=== PATIENT | female | born 1995 | race American Indian/Alaskan Native ===

== ENCOUNTER 2018-01-23 15:09 | Emergency (ER) | payer SELFPAY ==
[2018-01-23 15:16] VITALS: BP 129/89
[2018-01-23 15:59] LABS: Basophils # (Auto) 0.1 K/mm3 (0.0-0.1); Basophils % (Auto) 0.8 % (0.0-1.8); Eosinophils # (Auto) 0.1 K/mm3 (0.0-0.4); Eosinophils % (Auto) 0.7 % (0.0-4.3); Hematocrit 22.9 % (30.3-42.9); Hemoglobin 7.1 gm/dl (10.1-14.3); Lymphocytes # (Auto) 1.5 K/mm3 (1.2-5.4); Mean Corpuscular HGB Conc 31 % (30-34); Monocytes # (Auto) 0.5 K/mm3 (0.0-0.8); Monocytes % (Auto) 7.1 % (0.0-7.3); Platelet Count 396 K/mm3 (140-440); Red Blood Count 4.33 M/mm3 (3.65-5.03)
[2018-01-23 16:02] LABS: Mean Corpuscular Hemoglobin 16 pg (28-32); Mean Corpuscular Volume 53 fl (79-97); Red Cell Distribution Width 21.4 % (13.2-15.2)
[2018-01-23 16:18] LABS: BUN/Creatinine Ratio 12; Blood Urea Nitrogen 6 mg/dL (7-17); Calcium 8.4 mg/dL (8.4-10.2); Hemolysis Index 0
== END 2018-01-23 15:45 | disposition left against medical advice (07) ==
LOC: ED 15:09
DX: Z53.21 Procedure and treatment not carried out due to patient leaving prior to being seen by health care provider (principal)
CPT/HCPCS: 36415; 80048; 85025; 85045

== ENCOUNTER 2018-01-29 22:48 | Inpatient (IN) | payer SELFPAY ==
[2018-01-29] MEDS ORDERED: ASPIRIN PO ONE (23:44)
[2018-01-29] MEDS ORDERED: D5NS 0.2% 1,000 ML IV SCH (23:45)
[2018-01-30 00:24] LABS: Basophils # (Auto) 0.1 K/mm3 (0.0-0.1); Basophils % (Auto) 1.1 % (0.0-1.8); Eosinophils # (Auto) 0.1 K/mm3 (0.0-0.4); Eosinophils % (Auto) 0.6 % (0.0-4.3); Hematocrit 22.1 % (30.3-42.9); Hemoglobin 6.5 gm/dl (10.1-14.3); Lymphocytes % (Auto) 20.5 % (13.4-35.0); Mean Corpuscular HGB Conc 30 % (30-34); Monocytes # (Auto) 0.7 K/mm3 (0.0-0.8); Monocytes % (Auto) 7.3 % (0.0-7.3); Platelet Count 665 K/mm3 (140-440); Red Blood Count 4.23 M/mm3 (3.65-5.03)
[2018-01-30 00:26] LABS: Mean Corpuscular Hemoglobin 16 pg (28-32); Mean Corpuscular Volume 52 fl (79-97); Red Cell Distribution Width 21.8 % (13.2-15.2)
[2018-01-30 00:29] LABS: Alanine Aminotransferase 9 units/L (7-56); Albumin 4.1 g/dL (3.9-5); BUN/Creatinine Ratio 22; Blood Urea Nitrogen 13 mg/dL (7-17); Calcium 8.9 mg/dL (8.4-10.2); Hemolysis Index 0; Lipase 21 units/L (13-60)
[2018-01-30 00:48] LABS: Bilirubin,Urine NEG (Negative); Blood,Urine MOD (Negative); Color,Urine Yellow (Yellow); Mucus,Urine FEW /HPF; Protein,Urine <15 mg/dL mg/dL (Negative)
--- NOTE | 2018-01-30 01:22 | Emergency Department Report ---
ED General Adult HPI - General Chief complaint: Vaginal Bleeding Stated complaint: ABD PAIN, VAG BLEED Time Seen by Provider: 01/30/18 00:24 Source: patient Mode of arrival: Ambulatory Limitations: No Limitations - History of Present Illness Initial comments: pt. says that for 14 days he as been having vaginal bleeding . she is also complaining of pain in the right side of abdomen. says it is moderate intensity with no aggrav. or relieving factor. MD Complaint: vaginal bleeding -: Gradual Location: abdomen (right lower quadrant) Radiation: non-radiation Quality: aching Consistency: constant Improves with: none Worsens with: none Associated Symptoms: chest pain (right side), weakness, other (dizziness) Treatments Prior to Arrival: none - Related Data Home Medications Medication Instructions Recorded Confirmed Last Taken Tablet 1 tab PO DAILY 01/29/18 01/29/18 Unknown Allergies Allergy/AdvReac Type Severity Reaction Status Date / Time No Known Allergies Allergy Verified 01/29/18 23:46 ED Review of Systems ROS: Stated complaint: ABD PAIN, VAG BLEED Other details as noted in HPI Comment: All other systems reviewed and negative ED Past Medical Hx - Past Medical History Hx Sickle Cell Disease: Yes - Surgical History Additional Surgical History: orbital fractuire fracture with surgery to right eye - Social History Smoking Status: Current Some Day Smoker Substance Use Type: Marijuana - Medications Home Medications: Home Medications Medication Instructions Recorded Confirmed Last Taken Type Tablet 1 tab PO DAILY 01/29/18 01/29/18 Unknown History ED Physical Exam - General Limitations: No Limitations General appearance: alert, in no apparent distress - Head Head exam: Present: atraumatic, normocephalic - Eye Eye exam: Present: normal appearance - ENT ENT exam: Present: mucous membranes moist - Neck Neck exam: Present: normal inspection. Absent: tenderness - Respiratory Respiratory exam: Present: normal lung sounds bilaterally. Absent: respiratory distress - Cardiovascular Cardiovascular Exam: Present: regular rate, normal rhythm. Absent: systolic murmur, diastolic murmur, rubs, gallop - GI/Abdominal GI/Abdominal exam: Present: soft, tenderness (ttp of the right lower quadrant.no rebound), normal bowel sounds - Rectal Rectal exam: Present: deferred - Extremities Exam Extremities exam: Present: normal inspection. Absent: full ROM - Back Exam Back exam: Present: normal inspection, full ROM - Neurological Exam Neurological exam: Present: alert, oriented X3 - Psychiatric Psychiatric exam: Present: normal affect, normal mood - Skin Skin exam: Present: warm, dry, intact, normal color. Absent: rash ED Course Vital Signs 01/29/18 01/30/18 01/30/18 23:33 00:54 01:00 Temperature 99.1 F Pulse Rate 100 H 83 86 Respiratory 20 13 16 Rate Blood Pressure 128/53 124/73 117/77 O2 Sat by Pulse 100 100 Oximetry 01/30/18 01/30/18 01/30/18 01:10 01:20 01:30 Temperature Pulse Rate 100 H 82 89 Respiratory 25 H 22 17 Rate Blood Pressure 117/77 123/76 123/76 O2 Sat by Pulse 100 100 100 Oximetry 01/30/18 01/30/18 01/30/18 01:40 01:50 02:00 Temperature Pulse Rate 95 H 92 H 101 H Respiratory 18 13 14 Rate Blood Pressure 126/89 123/76 123/76 O2 Sat by Pulse 100 100 100 Oximetry 01/30/18 01/30/18 01/30/18 02:10 02:20 02:30 Temperature Pulse Rate 92 H 103 H 82 Respiratory 14 16 22 Rate Blood Pressure 123/76 126/89 126/89 O2 Sat by Pulse 100 99 100 Oximetry 01/30/18 01/30/18 01/30/18 02:40 02:50 03:12 Temperature Pulse Rate 86 86 91 H Respiratory 26 H 19 22 Rate Blood Pressure 126/89 126/89 126/89 O2 Sat by Pulse 100 100 Oximetry 01/30/18 01/30/18 01/30/18 03:20 03:30 03:40 Temperature Pulse Rate 73 77 Respiratory 18 17 22 Rate Blood Pressure 126/89 126/89 126/89 O2 Sat by Pulse 93 Oximetry 01/30/18 01/30/18 01/30/18 03:50 04:00 04:09 Temperature 98.6 F Pulse Rate 70 85 Respiratory 25 H 21 Rate Blood Pressure 126/89 126/89 O2 Sat by Pulse 100 100 Oximetry 01/30/18 01/30/18 01/30/18 04:16 04:20 04:30 Temperature Pulse Rate 75 89 Respiratory 12 20 17 Rate Blood Pressure 112/69 115/69 O2 Sat by Pulse 100 10 L 93 Oximetry 01/30/18 04:46 Temperature Pulse Rate 78 Respiratory 25 H Rate Blood Pressure 115/69 O2 Sat by Pulse 100 Oximetry ED Medical Decision Making - Lab Data Result diagrams: 01/29/18 23:52 01/29/18 23:52 - EKG Data -: EKG Interpreted by Me EKG shows normal: sinus rhythm (rate of 84), axis (normal), intervals (normal), QRS complexes (normal), ST-T waves (normal) - Radiology Data Radiology results: report reviewed - Medical Decision Making pt accepted for admission by Dr Doll. I also spoke to Brush Finisher.- Dr Michael and she was okay with the present management and said to admit to Hospitalist Critical care attestation.: If time is entered above; I have spent that time in minutes in the direct care of this critically ill patient, excluding procedure time. ED Disposition Clinical Impression: Dysfunctional uterine bleeding, Anemia Disposition: OP ADMIT IP TO THIS HOSP Is pt being admited?: Yes Does the pt Need Aspirin: No Condition: Stable Referrals: DERECK CARROLL MD [Primary Care Provider] - 3-5 Days
[2018-01-30] MEDS ORDERED: NACL 0.9% 1000 ML 1,000 ML IV ONE (01:25)
[2018-01-30] MEDS ORDERED: PREMARIN IV ONE (02:37)
[2018-01-30] MEDS ORDERED: NACL 0.9% 500 ML 500 ML IV ONE ×3 (02:45→18:00)
--- NOTE | 2018-01-30 03:35 | Cat Scan Report ---
FINAL REPORT EXAM: CT ABDOMEN PELVIS WO CON HISTORY: abdominal pain TECHNIQUE: Routine axial imaging was obtained of the abdomen and pelvis without oral or IV contrast. Sagittal and coronal reconstructions were reviewed. FINDINGS: The lung bases are clear. Pleural fluid is not seen. The liver, gallbladder, biliary tree, pancreas, spleen, and adrenal glands appear normal. The kidneys show no evidence of stones or hydronephrosis. The bowel loops are normal in caliber. The appendix is not enlarged. There is no evidence of free fluid or adenopathy. In the pelvis the uterus and bladder appear normal. The skeletal structures appear well maintained. The soft tissues reveal reticulation of the subcutaneous fat along the right lower anterior pelvic wall above the inguinal area. Localized inflammation cannot be excluded. IMPRESSION: No acute process in the abdomen and pelvis. Localized subcutaneous induration above the right inguinal area along the right lower anterior pelvic wall. Localized cellulitis cannot be excluded.
[2018-01-30] MEDS ORDERED: NORCO 10/325 PO ONE (03:51)
--- NOTE | 2018-01-30 04:21 | XRay Report ---
FINAL REPORT EXAM: XR CHEST 1V AP HISTORY: chest pain TECHNIQUE: An upright view of the chest was submitted. FINDINGS: Heart size and mediastinum appear normal. The lungs are clear. Pleural fluid is not seen. The skeletal structures reveal a dextroscoliosis of the lower thoracic spine. IMPRESSION: No active chest disease.
[2018-01-30] MEDS ORDERED: ZOFRAN IV PRN (04:37)
[2018-01-30] MEDS ORDERED: TYLENOL PO PRN (04:37)
[2018-01-30] MEDS ORDERED: SODIUM CHLORIDE FLUSH SYRINGE 10 ML IV PRN (04:37)
--- NOTE | 2018-01-30 04:55 | History and Physical Report ---
History of Present Illness Date of examination: 01/30/18 History of present illness: 22-year-old when with history of menorrhagia comes emergency room with complaints of vaginal bleeding 13 days. He stated that her cycle usually lasts 7 days, the first half of her cycle is usually heavy however this time she continues to have heavy cycles throughout the 13 days. States the longest that she has bled 4 was 1 month, at that time she received blood transfusion. Also complaining of dizziness, shortness of breath, chest pain on the right side which she described as a sharp pain over the last 4 days, intermittent in nature, less than 1 minute, intensity to 10, no radiation, she cannot identify exacerbation or relieving factors Review of systems Constitutional: no weight loss, chills Ears, eyes, nose, mouth and throat: no nasal congestion, no nasal discharge, no sinus pressure, no vision change, no red eye. Neck: No neck pain or rigidity. Cardiovascular: no chest pain, palpitations Respiratory: No cough, shortness of breath Gastrointestinal: no abdominal pain, hematochezia Genitourinary : no dysuria, frequency , no hematuria Musculoskeletal: no joint swelling or muscle ache Integumentary: no rash, no pruritis Neurological: no parathesias, no numbness, no focal weakness Endocrine: no cold or heat intolerance, no polyuria or polydipsia Hematologic/Lymphatic: no easy bruising, no easy bleeding, no gland swelling Allergic/Immunologic: no urticaria, no angioedema. PAST MEDICAL HISTORY: Menorrhagia PAST SURGICAL HISTORY: None SOCIAL HISTORY: Social alcohol, tobacco, no drugs FAMILY HISTORY: Hypertension Medications and Allergies Allergies Allergy/AdvReac Type Severity Reaction Status Date / Time No Known Allergies Allergy Verified 01/29/18 23:46 Home Medications Medication Instructions Recorded Confirmed Last Taken Type Tablet 1 tab PO DAILY 01/29/18 01/29/18 Unknown History Active Meds: Active Medications Acetaminophen (Tylenol) 650 mg PO Q4H PRN PRN Reason: Pain MILD(1-3)/Fever >100.5/WEST Ondansetron HCl (Zofran) 4 mg IV Q8H PRN PRN Reason: Nausea And Vomiting Oxycodone/Acetaminophen (Percocet 5/325) 1 tab PO Q6H PRN PRN Reason: Pain, Moderate (4-6) Sodium Chloride (Sodium Chloride Flush Syringe 10 Ml) 10 ml IV BID ELIZA Sodium Chloride (Sodium Chloride Flush Syringe 10 Ml) 10 ml IV PRN PRN PRN Reason: LINE FLUSH Exam - Physical Exam Narrative exam: Gen. appearance: Patient lying in bed, no apparent distress HEENT: Normocephalic, atraumatic, pupils equally round and reactive to light, extraocular movement intact, and no sclericterus,. No JVD or thyromegaly or nodule,neck supple, no carotid bruit ,mucous membranes moist, no exudate or erythema Heart: S1, S2, regular rate and rhythm Lungs: Clear to auscultation bilaterally, breathing comfortable Abdomen: Positive bowel sounds, nontender, nondistended, no organomegaly Extremity: No edema, cyanosis, clubbing Skin: No rash, nodules, warm, dry Neuro: Oriented 3, cranial nerves II-12 intact, speech is fluent, motor and sensory intact - Constitutional Vitals: Temp Pulse Resp BP Pulse Ox 98.6 F 85 20 126/89 10 L 01/30/18 04:09 01/30/18 04:00 01/30/18 04:20 01/30/18 04:00 01/30/18 04:20 Results - Labs CBC & Chem 7: 01/29/18 23:52 01/29/18 23:52 Labs: Abnormal lab results 01/29/18 01/29/18 01/30/18 Range/Units 23:52 23:52 02:01 Hgb 6.5 L (10.1-14.3) gm/dl Hct 22.1 L (30.3-42.9) % MCV 52 L (79-97) fl MCH 16 L (28-32) pg RDW 21.8 H (13.2-15.2) % Plt Count 665 H (140-440) K/mm3 Seg Neutrophils % 70.5 H (40.0-70.0) % Creatinine 0.6 L (0.7-1.2) mg/dL Crossmatch See Detail - Imaging and Cardiology EKG: image reviewed Chest x-ray: image reviewed CT scan - abdomen: report reviewed Assessment and Plan Assessment Menorrhagia Blood loss anemia Plan Admit to medicine Transfuse packed red blood cells, consult CENSUS CLERK DVT prophylaxis
[2018-01-30 05:31] LABS: Creatine Kinase MB < 1.0 ng/mL (0.0-4.0)
[2018-01-30] MEDS: SODIUM CHLORIDE FLUSH SYRINGE 10 ML IV SCH ×2 (10:00→22:00)
--- NOTE | 2018-01-30 10:30 | History and Physical Report ---
History of Present Illness Date of examination: 01/30/18 Date of admission: 01/30/18 04:37 Chief complaint: heavy vaginal bleeding History of present illness: 22 yo G 0 P 0 came in last night for heavy vaginal bleeding. Patient states that she is from [place]. She has history of menorrhagia coming emergency room with complaints of vaginal bleeding 13 days. She stated that her cycle usually lasts 7 days, the first half of her cycle is usually heavy. This bleed is different stating that it continues to have heavy cycles throughout the 13 days. States the longest bleeding was endured for one month . She has a hx of blood tansfusion in the past. Past History Past Medical History: other (menorrhagia ) Past Surgical History: no surgical history Family/Genetic History: hypertension Social history: no significant social history, single. denies: smoking, alcohol abuse, prescription drug abuse Medications and Allergies Allergies Allergy/AdvReac Type Severity Reaction Status Date / Time No Known Allergies Allergy Verified 01/29/18 23:46 Home Medications Medication Instructions Recorded Confirmed Last Taken Type Tablet 1 tab PO DAILY 01/29/18 01/29/18 Unknown History Active Meds: Active Medications Acetaminophen (Tylenol) 650 mg PO Q4H PRN PRN Reason: Pain MILD(1-3)/Fever >100.5/WEST Ondansetron HCl (Zofran) 4 mg IV Q8H PRN PRN Reason: Nausea And Vomiting Oxycodone/Acetaminophen (Percocet 5/325) 1 tab PO Q6H PRN PRN Reason: Pain, Moderate (4-6) Sodium Chloride (Sodium Chloride Flush Syringe 10 Ml) 10 ml IV BID ELIZA Sodium Chloride (Sodium Chloride Flush Syringe 10 Ml) 10 ml IV PRN PRN PRN Reason: LINE FLUSH Review of Systems All systems: negative Genitourinary: vaginal bleeding - Vital Signs Vital signs: Vital Signs Temp Pulse Resp BP Pulse Ox 99.1 F 100 H 20 128/53 100 01/29/18 23:33 01/29/18 23:33 01/29/18 23:33 01/29/18 23:33 01/29/18 23:33 Temp Pulse Resp BP Pulse Ox 98.6 F 76 14 110/61 99 01/30/18 04:09 01/30/18 06:00 01/30/18 06:00 01/30/18 06:00 01/30/18 06:00 - Physical Exam Breasts: Positive: deferred Cardiovascular: Regular rate, Normal S1 Lungs: Positive: Clear to auscultation, Normal air movement Abdomen: Positive: normal appearance, soft, normal bowel sounds. Negative: distention, tenderness, guarding Genitourinary (Female): Positive: normal external genitalia, normal perenium Vulva: both: normal Uterus: Positive: normal size, normal contour Deep Tendon Reflex Grade: Normal +2 Results Result Diagrams: 01/30/18 10:20 01/29/18 23:52 Abnormal lab results 01/29/18 01/29/18 01/30/18 Range/Units 23:52 23:52 02:01 Hgb 6.5 L (10.1-14.3) gm/dl Hct 22.1 L (30.3-42.9) % MCV 52 L (79-97) fl MCH 16 L (28-32) pg RDW 21.8 H (13.2-15.2) % Plt Count 665 H (140-440) K/mm3 Seg Neutrophils % 70.5 H (40.0-70.0) % Creatinine 0.6 L (0.7-1.2) mg/dL Crossmatch See Detail All other labs normal. CT scan - abdomen: report reviewed Assessment and Plan A/p HD#1 Menorrhagia, severe anemia s/p IV estrogen 25mg ( may use for 24 hrs every 4-6hrs) recommned patient to transition to ocps vs depo -but patietn adamently refuses She states that she will take estrogen but will not take any other meds agree with blood transfusion recommneded US pelvic to assess clearly CT scan not as specific for therapist occupational issues f/u in office 1-2 weeks after discharge to discuss other options ie depo vs mirena IUD- patient states she is not interested in any tyepe of control thank you for the consult
[2018-01-30 10:33] LABS: Hemoglobin 6.9 gm/dl (10.1-14.3)
[2018-01-30 11:00] LABS: Creatine Kinase MB < 1.0 ng/mL (0.0-4.0)
[2018-01-30] MEDS ORDERED: NACL 0.9% 250ML 250 ML ONE (12:12)
[2018-01-30] MEDS: PERCOCET 5/325 PO PRN ×2 (13:41→19:48)
--- NOTE | 2018-01-30 17:54 | Event Note ---
Date: 01/30/18 Patient was seen in rounds this morning, patient was admitted this morning. Patient is admitted for symptomatic anemia secondary to menometrorrhagia. Posttransfusion hemoglobin 6.9 , to transfuse 2 more units of blood. CARAMEL CUTTER HELPER consult appreciated. Continue management per H&P.
[2018-01-31] MEDS: PERCOCET 5/325 PO PRN (08:37)
[2018-01-31 08:54] LABS: Hematocrit 34.7 % (30.3-42.9); Hemoglobin 11.3 gm/dl (10.1-14.3); Mean Corpuscular HGB Conc 33 % (30-34); Platelet Count 510 K/mm3 (140-440); Red Blood Count 5.38 M/mm3 (3.65-5.03)
[2018-01-31 08:55] LABS: Mean Corpuscular Hemoglobin 21 pg (28-32); Mean Corpuscular Volume 64 fl (79-97); Red Cell Distribution Width 36.2 % (13.2-15.2)
[2018-01-31 08:56] LABS: Basophils # (Auto) 0.1 K/mm3 (0.0-0.1); Basophils % (Auto) 0.9 % (0.0-1.8); Eosinophils # (Auto) 0.1 K/mm3 (0.0-0.4); Eosinophils % (Auto) 0.7 % (0.0-4.3); Lymphocytes # (Auto) 1.5 K/mm3 (1.2-5.4); Lymphocytes % (Auto) 13.9 % (13.4-35.0); Monocytes # (Auto) 0.8 K/mm3 (0.0-0.8)
[2018-01-31] MEDS: SODIUM CHLORIDE FLUSH SYRINGE 10 ML IV SCH (09:21)
[2018-01-31 09:25] LABS: BUN/Creatinine Ratio 14; Blood Urea Nitrogen 7 mg/dL (7-17); Calcium 9.1 mg/dL (8.4-10.2); Hemolysis Index 15
--- NOTE | 2018-01-31 12:25 | Discharge Summary ---
Providers - Providers Date of Admission: 01/30/18 04:37 Date of discharge: 01/31/18 Attending physician: ZBIGNIEW MILLIGAN MD 01/30/18 04:37 Consult to Physician [CONS] Urgent Comment: Consulting Provider: CHRISTIAN MICHAEL Physician Instructions: Reason For Exam: vag bleed Primary care physician: DERECK CARROLL Hospitalization Reason for admission: symptomatic anemia Condition: Stable Hospital course: 21-year-old -[place] female who is post medical history significant for anemia, DUB presented to the emergency department complaining of prolonged vaginal bleeding for over a week. Patient is feeling dizzy. Her hemoglobin was around 6 in the emergency department she was transfused with 2 units of blood and her hemoglobin this morning was 11.2 and patient was symptom-free. Patient claims that she had unprotected sex was a person was herpes simplex and she wants to be treated. We did HSV and results are pending. We will also ordered STI tests and results are pending. Then patient didn't have any lesion which looks like herpes simplex and I told her if she has any signs and symptoms of herpes simplex we will treat her. If there are no symptoms we can wait the result of HSV. Patient is complaining a bump on the left groin area and I went with nurse Amy and examined her and the bump is one and non tender. For me it doesn't look like HSV infection and advised her to have hot compression. INSTALLMENT DEALER recommended and was not ordered the plan was to call contact center analyst and ask the plan about Pelvic U/S. The patient get upset and wants to be discharged. Her hemoglobin is 11 and she is stable for discharge. I have extensively discussed about the need to have follow up with the results either with PCP or Dr Michael but she is dismissive. Disposition: TO HOME OR SELFCARE Time spent for discharge: 31 minutes - Discharge Diagnoses (1) Anemia Status: Acute Qualifiers: Anemia type: iron deficiency Iron deficiency anemia type: chronic blood loss Qualified Code(s): D50.0 - Iron deficiency anemia secondary to blood loss (chronic) (2) Dysfunctional uterine bleeding Status: Chronic Core Measure Documentation - Palliative Care Palliative Care/ Comfort Measures: Not Applicable - Core Measures Any of the following diagnoses?: none Exam - Physical Exam Narrative exam: Not in cardiopulmonary distress. The patient appeared well nourished and normally developed. Vital signs as documented. Head exam is unremarkable. No scleral icterus . Neck is without jugular venous distension, thyromegaly, or carotid bruits. Lungs are clear to auscultation. Cardiac exam reveals regular rate and Rhythm. First and second heart sounds normal. No murmurs, rubs or gallops. Abdominal exam reveals normal bowel sounds, no masses, no organomegaly and no aortic enlargement. Extremities are nonedematous and both femoral and pedal pulses are normal. Small bump on the right area, i don't believe it is Herpes simplex. REVIEW MANAGER: Alert and oriented 3. No focal weakness. - Constitutional Vitals: Temp Pulse Resp BP Pulse Ox 98.8 F 78 14 126/83 100 01/31/18 08:52 01/31/18 08:52 01/31/18 08:52 01/31/18 08:52 01/31/18 08:52 Plan Activity: no restrictions Weight Bearing Status: Full Weight Bearing Follow up with: DERECK CARROLL MD [Primary Care Provider] - 7 Days CHRISTIAN MICHAEL MD [Staff Physician] - 7 Days Prescriptions: Ferrous Sulfate 324 mg PO BID #60 tablet.
[2018-01-31 12:56] VITALS: BP 128/75
== END 2018-01-31 13:36 | disposition home or self-care (01) | DRG 761 ==
LOC: ED 22:48 → 4A 01-30 04:37
PROVIDERS: ADMIT Internal Medicine; ATTEND Internal Medicine
PROC: 30233N1 Transfusion of Nonautologous Red Blood Cells into Peripheral Vein, Percutaneous Approach (ICD-10-PCS; principal; 2018-01-30)
DX: N93.8 Other specified abnormal uterine and vaginal bleeding (principal); D64.9 Anemia, unspecified; R07.9 Chest pain, unspecified; F17.200 Nicotine dependence, unspecified, uncomplicated; F12.90 Cannabis use, unspecified, uncomplicated; N92.0 Excessive and frequent menstruation with regular cycle; Z79.899 Other long term (current) drug therapy; Z82.49 Family history of ischemic heart disease and other diseases of the circulatory system; Z72.89 Other problems related to lifestyle
CPT/HCPCS: 36415; 71045; 74176; 80048; 80053; 81001; 82550; 82553; 83690; 84484; 84703; 85007; 85014; 85018; 85025; 85045; 86850; 86900; 86901; 86920; 87210; 87529; 87591; 93005; 93010; 96374; J1410; J7030; J7040; J7050; P9016